=== PATIENT | female | born 1970 ===

== ENCOUNTER 2018-12-08 05:16 | Emergency (ER) | payer SELFPAY ==
[~2018-12-08] VITALS: Ht 170.2 cm; Wt 72.6 kg
--- NOTE | 2018-12-08 05:23 | NUR ---
PT ROBERT FROM HOME C/O SOB. PT STATES "I WAS SLEEPING AND WOKE UP FEELING THIS WAY". PT DENIES CP, COUGH, FEVER. PT APPEARS ANXIOUS. O2 SATURATION 100% ON ROOM AIR. VITAL SIGNS STABLE. NO ACUTE DISTRESS NOTED AT THIS TIME. WILL CONTINUE TO MONITOR
--- NOTE | 2018-12-08 05:25 | NUR ---
MD AT BEDSIDE FOR EVALUATION
[2018-12-08] MEDS ORDERED: ALPRAZOLAM 0.5 MG TABLET PO ONE (05:30)
--- NOTE | 2018-12-08 05:30 | NUR ---
TECH AT BEDSIDE FOR EKG
[2018-12-08] MEDS ORDERED: ALPRAZOLAM 0.5 MG TABLET ONE (05:32)
--- NOTE | 2018-12-08 06:20 | NUR ---
Patient discharged to home in stable condition. Written and verbal after care instructions given. Patient verbalizes understanding of instruction.Pt ambulatory with a steady gait
[2018-12-08 06:21] VITALS: BP 138/79
== END 2018-12-08 06:22 | disposition home or self-care (01) ==
LOC: ER 05:19
DX: F41.9 Anxiety disorder, unspecified (principal); Z88.0 Allergy status to penicillin; Z88.2 Allergy status to sulfonamides